=== PATIENT | male | born 1950 | race African-American/Black ===

== ENCOUNTER 2024-12-30 12:51 | Inpatient (IN) | payer MEDICARE, MEDICAID ==
[~2024-12-30] VITALS: Ht 170.2 cm; Wt 82.1 kg
[2024-12-30 17:38] LABS: BASOPHILS % 0.4 % (0.0-2.0); EOSINOPHILS % 0.1 % (0.0-5.0); HEMATOCRIT. 39.4 % (42.0-52.0); HEMOGLOBIN. 12.6 g/dL (14.0-18.0); LYMPHOCYTES % 23.2 % (20.0-50.0); MEAN CORPUSCULAR HEMOGLOBIN 28.7 pg (28.0-32.0); MEAN CORPUSCULAR VOLUME 89.6 fL (80.0-94.0); MEAN PLATELET VOLUME 7.8 fl (7.4-10.4); MONOCYTES % 10.5 % (2.0-8.0); NEUTROPHILS % 65.8 % (40.0-76.0); PLATELET 313 x1000/uL (130-400); RED CELL DISTRIBUTION WIDTH 15.7 % (11.6-14.6); WHITE BLOOD COUNT 9.2 x1000/uL (4.5-11.0)
[2024-12-30 17:48] LABS: CARBON DIOXIDE 30 mEq/L (21-32); CHLORIDE 100 mEq/L (98-107); POTASSIUM 3.4 mEq/L (3.5-5.1); SODIUM 138 mEq/L (136-145)
[2024-12-30 17:54] LABS: CREATININE 1.2 mg/dL (0.6-1.3); GLUCOSE 119 mg/dL (70-105); TROPONIN I HIGH SENSITIVITY 7 ng/L (3.0-53)
[2024-12-30 17:55] LABS: UREA NITROGEN BLOOD 12 mg/dL (9-23)
[2024-12-30 18:30] LABS: ALANINE AMINOTRANSFERASE 12 IU/L (10-49); ASPARTATE AMINOTRANSFERASE 24 IU/L (<34); BILIRUBIN DIRECT 0.3 mg/dL (<=3.0); BILIRUBIN TOTAL 0.8 mg/dL (0.1-1.0); CREATINE KINASE 157 IU/L (46-171)
[2024-12-30] MEDS ORDERED: DOCUSATE SODIUM 100MG CAPSULE PO PRN (19:30)
[2024-12-30] MEDS ORDERED: ACETAMINOPHEN 325MG TABLET PO PRN ×2 (19:30)
[2024-12-30] MEDS ORDERED: CLONIDINE 0.1MG TABLET PO PRN (19:30)
[2024-12-30] MEDS ORDERED: ONDANSETRON HCL 4MG/2ML INJ IV PRN (19:30)
[2024-12-30] MEDS ORDERED: IPRATROPIUM/ALBUTEROL 0.5-3(2.5)MG/3ML NEB HHN PRN (19:30)
[2024-12-30] MEDS ORDERED: DEXTROSE 50% WATER 50ML SYRINGE IV PRN (19:30)
[2024-12-30] MEDS: BLOOD SUGAR DIAGNOSTIC STRIP TEST SCH (21:00)
[2024-12-30] MEDS: INSULIN LISPRO 100 UNITS/ML SUBCUT SCH (21:00)
[2024-12-30 23:00] VITALS: BP 132/82; PULSE 86; RESP 17; TEMP 36.5
[2024-12-31] VITALS: BP 132/82; PULSE 86; RESP 17; TEMP 36.4; O2SAT 97
[2024-12-31 04:00] VITALS: BP 130/80; PULSE 84; RESP 16; TEMP 36.3; O2SAT 96
[2024-12-31 07:06] LABS: CARBON DIOXIDE 29 mEq/L (21-32); CHLORIDE 100 mEq/L (98-107); POTASSIUM 3.5 mEq/L (3.5-5.1); SODIUM 137 mEq/L (136-145)
[2024-12-31 07:09] LABS: BASOPHILS % 0.3 % (0.0-2.0); EOSINOPHILS % 0.2 % (0.0-5.0); HEMATOCRIT. 37.9 % (42.0-52.0); HEMOGLOBIN. 12.1 g/dL (14.0-18.0); MEAN CORPUSCULAR HEMOGLOBIN 28.5 pg (28.0-32.0); MEAN CORPUSCULAR HGB CONC 31.9 g/dL (31.0-37.0); MEAN CORPUSCULAR VOLUME 89.4 fL (80.0-94.0); MEAN PLATELET VOLUME 7.8 fl (7.4-10.4); MONOCYTES % 9.5 % (2.0-8.0); PLATELET 253 x1000/uL (130-400); RED BLOOD CELL COUNT 4.24 mill/uL (4.7-6.1); RED CELL DISTRIBUTION WIDTH 15.6 % (11.6-14.6)
[2024-12-31 07:12] LABS: CREATININE 0.9 mg/dL (0.6-1.3); GLUCOSE 95 mg/dL (70-105)
[2024-12-31 07:13] LABS: UREA NITROGEN BLOOD 13 mg/dL (9-23)
[2024-12-31 08:00] VITALS: BP 105/67; PULSE 81; RESP 16; TEMP 36.9; O2SAT 92
[2024-12-31] MEDS: OSELTAMIVIR 75MG CAPSULE PO SCH (11:23)
[2024-12-31] MEDS ORDERED: CLOP75TA33 MT (13:21)
[2024-12-31] MEDS ORDERED: ESCI5TAB16 MT (13:21)
[2024-12-31] MEDS ORDERED: CHOL200010 (13:21)
[2024-12-31] MEDS ORDERED: BENA-8 MT (13:21)
[2024-12-31] MEDS ORDERED: NIFE-33 MT (13:21)
[2024-12-31] MEDS ORDERED: HYDR25TA PO (13:21)
[2024-12-31] MEDS ORDERED: METF-414 MT (13:21)
[2024-12-31] MEDS ORDERED: PRAV20TA57 MT (13:21)
[2024-12-31 20:00] VITALS: BP 116/71; PULSE 80; RESP 18; TEMP 36.9; O2SAT 100
[2025-01-01] VITALS: BP 109/65; PULSE 87; RESP 18; TEMP 36.6; O2SAT 97
[2025-01-01 04:00] VITALS: BP 112/72; PULSE 78; RESP 16; TEMP 36.5; O2SAT 94
[2025-01-01 08:00] VITALS: BP 140/75; PULSE 80; RESP 18; TEMP 36.6; O2SAT 97
[2025-01-01 12:00] VITALS: BP 118/73; PULSE 73; RESP 16; TEMP 36.7; O2SAT 98
[2025-01-01 16:00] VITALS: BP 121/74; PULSE 71; RESP 16; TEMP 36.6; O2SAT 100
[2025-01-01 20:00] VITALS: BP 112/66; PULSE 66; RESP 20; TEMP 36.3; O2SAT 98
[2025-01-02] VITALS: BP 118/68; PULSE 65; RESP 18; TEMP 36.4; O2SAT 97
[2025-01-02 04:36] VITALS: BP 124/75; PULSE 73; RESP 17; TEMP 37; O2SAT 97
[2025-01-02 08:00] VITALS: BP 135/87; PULSE 62; RESP 18; TEMP 36.6; O2SAT 98
[2025-01-02 12:00] VITALS: BP 140/70; PULSE 80; RESP 16; TEMP 36.4; O2SAT 97
[2025-01-02 16:00] VITALS: BP 145/79; PULSE 65; RESP 18; TEMP 36.7
[2025-01-02 20:00] VITALS: BP 137/73; PULSE 61; RESP 19; TEMP 36.4
[2025-01-03] VITALS: BP 127/71; PULSE 64; RESP 17; TEMP 36.7
[2025-01-03 04:00] VITALS: BP 127/71; PULSE 64; RESP 18; TEMP 36.7
[2025-01-03 08:00] VITALS: BP 142/83; PULSE 71; RESP 18; TEMP 36.8; O2SAT 97
[2025-01-03 12:00] VITALS: BP 135/76; PULSE 66; RESP 19; TEMP 36.9; O2SAT 96
[2025-01-03] MEDS ORDERED: TAM75 PO (14:02)
[2025-01-03 14:14] VITALS: BP 146/76; PULSE 63; TEMP 97.9; O2SAT 98
[2025-01-03 14:25] VITALS: BP 146/76; PULSE 63; TEMP 97.9; O2SAT 98
== END 2025-01-03 16:00 | disposition home health service (06) | DRG 195 ==
LOC: ER 12:51 → 5WST 19:17
PROVIDERS: ADMIT Family Medicine Adult Medicine; ATTEND Family Medicine Adult Medicine
DX: J10.1 Influenza due to other identified influenza virus with other respiratory manifestations (principal); Z20.822 Contact with and (suspected) exposure to COVID-19; I10 Essential (primary) hypertension; E11.9 Type 2 diabetes mellitus without complications; M79.604 Pain in right leg; M79.605 Pain in left leg; Z88.8 Allergy status to other drugs, medicaments and biological substances; Z86.73 Personal history of transient ischemic attack (TIA), and cerebral infarction without residual deficits; Z79.899 Other long term (current) drug therapy
CPT/HCPCS: 36415; 71045; 80048; 80076; 82550; 82962; 83036; 84484; 85025; 87426; 87804; 93005; 97161; 99285; A4606